=== PATIENT | male | born 1995 | race Asian ===

== ENCOUNTER 2018-11-15 20:17 | Emergency (ER) | payer BC ==
[2018-11-15] MEDS ORDERED: Triple Antibiotic Oint 1 GM Packet ONE (22:52)
== END 2018-11-15 23:00 | disposition home or self-care (01) ==
LOC: ERS 20:17
DX: T59.91XA Toxic effect of unspecified gases, fumes and vapors, accidental (unintentional), initial encounter (principal); T20.23XA Burn of second degree of chin, initial encounter; T20.26XA Burn of second degree of forehead and cheek, initial encounter; T31.0 Burns involving less than 10% of body surface; F17.210 Nicotine dependence, cigarettes, uncomplicated
CPT/HCPCS: 99283